=== PATIENT | female | born 1975 | race Two or more races ===

== ENCOUNTER 2019-08-02 18:38 | Emergency (ER) | payer MEDICAID, OTHER ==
[~2019-08-02] VITALS: Ht 157.5 cm; Wt 59.9 kg
[~2019-08-02 18:38] MED LIST: ACET-868 PO
[2019-08-02 19:11] VITALS: BP 130/68
[2019-08-02] MEDS ORDERED: DEXAMETHASONE SOD PHOSPHATE 10 MG/ML VIAL ONE (20:06)
[2019-08-02] MEDS: DEXAMETHASONE SOD PHOSPHATE 4 MG/ML VIAL IM ONE (20:18)
[2019-08-03] MEDS ORDERED: CT SWABBABLE VALVE TRANS SET 1 EA INFUS.SET MC ONE (11:53)
[2019-08-03] MEDS ORDERED: IOHEXOL-300 100 ML VIAL IV ONE (11:53)
[2019-08-03] MEDS ORDERED: IV NS 0.9% 250 ML IV ONE (11:54)
== END 2019-08-02 20:19 | disposition home or self-care (01) ==
LOC: ER 18:38
DX: S80.862A Insect bite (nonvenomous), left lower leg, initial encounter (principal); S80.861A Insect bite (nonvenomous), right lower leg, initial encounter; S40.862A Insect bite (nonvenomous) of left upper arm, initial encounter; S40.861A Insect bite (nonvenomous) of right upper arm, initial encounter; W57.XXXA Bitten or stung by nonvenomous insect and other nonvenomous arthropods, initial encounter; Y93.89 Activity, other specified; Y92.89 Other specified places as the place of occurrence of the external cause; Y99.8 Other external cause status
CPT/HCPCS: 96372; 99283; J1100; J7050; Q9967